=== PATIENT | male | born 1965 | race Caucasian/White ===

== ENCOUNTER 2018-07-23 11:33 | Outpatient (REF) | payer OTHER, SELFPAY ==
[2018-07-24 00:14] LABS: COMMENT (LAB VIEW ONLY) 7.78 mg/dL; Microalb ug/mg Crea 16.7 ug/mg Cr
== END 2018-07-23 11:53 ==
LOC: NCHCN 11:33
PROVIDERS: PCP Internal Medicine; Visit Provider Internal Medicine
DX: E11.9 Type 2 diabetes mellitus without complications (principal)
CPT/HCPCS: 82043; 82570

== ENCOUNTER 2019-01-15 09:06 | Outpatient (REF) | payer OTHER, SELFPAY ==
[2019-01-15 21:38] LABS: Anion Gap 8.8 mmol/L (3-11); BUN 19 mg/dL (7-18); CO2 28.2 mmol/L (21.0-32.0); Calcium 8.9 mg/dL (8.5-10.1); Chloride 103 mmol/L (98-107); Glucose 117 mg/dL (70-100); Potassium 4.3 mmol/L (3.5-5.1); Sodium 140 mmol/L (136-145)
[2019-01-15 22:10] LABS: Abs Immature Grans 0.01 k/cumm (0.0-0.09); Absolute Basophil Count 0.03 k/cumm (0.0-0.2); Absolute Eosinophil Count 0.14 k/cumm (0.0-0.7); Absolute Monocyte Count 0.39 k/cumm (0.11-0.7); Absolute Neutrophil Count 3.48 k/cumm (1.2-6.7); Basophils % 0.5; Eosinophils % 2.5; HCT 42.4 % (40.0-50.0); HGB 13.5 g/dL (13.5-17.5); Immature Grans % 0.2; Lymphocytes % 28.3; Mean Corp. HGB Concentration 31.8 g/dL (32.0-36.0); Mean Corpuscular Hemoglobin 28.5 pg (27.0-33.0); Mean Corpuscular Volume 89.6 fL (80-95); Mean Platelet Volume 10.5 fL (8.0-11.0); Monocytes % 6.9; Neutrophils % 61.6; Platelet Count 212 x1000/uL (130-400); RBC 4.73 m/cumm (4.50-6.00); RBC Distribution Width 13.9 % (11.8-14.1); White Blood Cell Count 5.65 k/cumm (4.4-10.8)
== END 2019-01-15 09:26 ==
LOC: NCHCN 09:06
PROVIDERS: PCP Internal Medicine; Visit Provider Family Medicine
DX: I25.10 Atherosclerotic heart disease of native coronary artery without angina pectoris (principal); E03.9 Hypothyroidism, unspecified
CPT/HCPCS: 80048; 84443; 85025

== ENCOUNTER 2019-06-17 17:39 | Outpatient (REF) | payer OTHER, SELFPAY ==
[2019-06-17 22:00] LABS: HCT 44.5 % (40.0-50.0); HGB 14.4 g/dL (13.5-17.5); Mean Corp. HGB Concentration 32.4 g/dL (32.0-36.0); Mean Corpuscular Hemoglobin 29.2 pg (27.0-33.0); Mean Corpuscular Volume 90.3 fL (80-95); Mean Platelet Volume 10.3 fL (8.0-11.0); Platelet Count 190 x1000/uL (130-400); RBC 4.93 m/cumm (4.50-6.00); White Blood Cell Count 7.17 k/cumm (4.4-10.8)
[2019-06-17 22:17] LABS: Anion Gap 8.9 mmol/L (3-11); BUN 34 mg/dL (7-18); CO2 28.1 mmol/L (21.0-32.0); CREATININE 0.89 mg/dL (0.70-1.30); Calcium 8.8 mg/dL (8.5-10.1); Chloride 104 mmol/L (98-107); Glucose 95 mg/dL (70-100); Magnesium 2.2 mg/dL (1.8-2.4); Potassium 3.9 mmol/L (3.5-5.1); Sodium 141 mmol/L (136-145); TSH 1.01 uIU/mL (0.36-3.74)
== END 2019-06-17 17:59 ==
LOC: NCHCN 17:39
PROVIDERS: PCP Internal Medicine; Visit Provider Family Medicine
DX: I49.3 Ventricular premature depolarization (principal); I25.10 Atherosclerotic heart disease of native coronary artery without angina pectoris; E11.9 Type 2 diabetes mellitus without complications
CPT/HCPCS: 80048; 85027; 83735; 84443

== ENCOUNTER 2019-11-06 15:29 | Outpatient (REF) | payer OTHER, SELFPAY ==
[2019-11-06 21:02] LABS: COMMENT (LAB VIEW ONLY) 53.81 mg/dL; Microalb ug/mg Crea 11.5 ug/mg Cr
== END 2019-11-06 15:49 ==
LOC: NCHCN 15:29
PROVIDERS: PCP Internal Medicine; Visit Provider Family Medicine
DX: Z00.00 Encounter for general adult medical examination without abnormal findings (principal); I25.10 Atherosclerotic heart disease of native coronary artery without angina pectoris; E03.9 Hypothyroidism, unspecified; I10 Essential (primary) hypertension; E11.9 Type 2 diabetes mellitus without complications
CPT/HCPCS: 82043; 82570

== ENCOUNTER 2019-11-18 22:50 | Outpatient (REF) | payer OTHER, SELFPAY ==
[2019-11-18 22:42] LABS: HCT 45.6 % (40.0-50.0); HGB 15.1 g/dL (13.5-17.5); Mean Corp. HGB Concentration 33.1 g/dL (32.0-36.0); Mean Corpuscular Hemoglobin 29.5 pg (27.0-33.0); Mean Corpuscular Volume 89.2 fL (80-95); Mean Platelet Volume 10.3 fL (8.0-11.0); Platelet Count 206 x1000/uL (130-400); RBC 5.11 m/cumm (4.50-6.00); RBC Distribution Width 12.7 % (11.8-14.1); White Blood Cell Count 6.65 k/cumm (4.4-10.8)
[2019-11-18 23:25] LABS: Anion Gap 7.6 mmol/L (3-11); BUN 13 mg/dL (7-18); CO2 31.4 mmol/L (21.0-32.0); CREATININE 0.83 mg/dL (0.70-1.30); Calcium 9.1 mg/dL (8.5-10.1); Chloride 104 mmol/L (98-107); Glucose 98 mg/dL (74-106); Magnesium 2.2 mg/dL (1.8-2.4); Potassium 4.1 mmol/L (3.5-5.1); Sodium 143 mmol/L (136-145); TSH 2.83 uIU/mL (0.36-3.74); Troponin I < 0.05 ng/Ml (<0.06); Vitamin B12 467 pg/mL (193-986)
[2019-11-19 05:26] LABS: Vitamin D 25 Total 28.6 ng/ml (30-100)
== END 2019-11-18 23:10 ==
LOC: NCHCN 22:50
PROVIDERS: PCP Internal Medicine; Visit Provider Family Medicine
DX: R07.9 Chest pain, unspecified (principal); M79.10 Myalgia, unspecified site
CPT/HCPCS: 80048; 82306; 85027; 82607; 83735; 84443; 84484

== ENCOUNTER 2019-11-26 14:01 | Outpatient (REF) | payer OTHER, SELFPAY ==
[2019-11-26 21:42] LABS: TSH 3.04 uIU/mL (0.36-3.74)
== END 2019-11-26 14:21 ==
LOC: NCHCN 14:01
PROVIDERS: PCP Internal Medicine; Visit Provider Family Medicine
DX: Z00.00 Encounter for general adult medical examination without abnormal findings (principal); I25.10 Atherosclerotic heart disease of native coronary artery without angina pectoris; E03.9 Hypothyroidism, unspecified; I10 Essential (primary) hypertension; E11.9 Type 2 diabetes mellitus without complications
CPT/HCPCS: 84443

== ENCOUNTER 2020-03-01 09:17 | Outpatient (REF) | payer OTHER, SELFPAY ==
[2020-03-01 20:45] LABS: Hemoglobin A1C 6.1 % (3.8-5.6)
[2020-03-01 20:57] LABS: ALT 51 U/L (16-63); AST 29 U/L (15-37); Albumin 4.1 g/dL (3.4-5.0); Alkaline Phosphatase 84 U/L (46-116); Anion Gap 9.8 mmol/L (3-11); BUN 13 mg/dL (7-18); Bilirubin, Total 0.5 mg/dL (0.2-1.0); CO2 26.2 mmol/L (21.0-32.0); CREATININE 0.94 mg/dL (0.70-1.30); Calcium 9.2 mg/dL (8.5-10.1); Chloride 105 mmol/L (98-107); Glucose 141 mg/dL (74-106); Potassium 4.3 mmol/L (3.5-5.1); Sodium 141 mmol/L (136-145); TSH 1.73 uIU/mL (0.36-3.74); Total Protein 6.8 g/dL (6.4-8.2)
[2020-03-01 21:11] LABS: Calculated LDL 60 mg/dL (<100); Cholesterol 128 mg/dL (<200); HDL Cholesterol 33 mg/dL (40-60); Triglyceride 177 mg/dL (<150)
[2020-03-03 14:03] LABS: PSA, Screening 0.8 ng/mL (0.0-3.5)
== END 2020-03-01 09:37 ==
LOC: NCHCN 09:17
PROVIDERS: PCP Family Medicine; Visit Provider Family Medicine
DX: Z00.00 Encounter for general adult medical examination without abnormal findings (principal); E03.9 Hypothyroidism, unspecified; I10 Essential (primary) hypertension; I25.10 Atherosclerotic heart disease of native coronary artery without angina pectoris; E11.9 Type 2 diabetes mellitus without complications; Z12.5 Encounter for screening for malignant neoplasm of prostate
CPT/HCPCS: 80053; 80061; 84153; 83036; 84443

== ENCOUNTER 2020-03-15 08:52 | Outpatient (REF) | payer OTHER, SELFPAY ==
[2020-03-15 22:22] LABS: Bilirubin Negative (Negative); Blood Negative (Negative); Clarity Clear (Clear); Glucose Negative (Negative); Ketones Negative (Negative); Leukocyte Esterase Negative (Negative); Nitrite Negative (Negative); Specific Gravity 1.025 (1.005-1.025); Urobilinogen 0.2 EU/dL (Up TO 0.2); pH 5.5 (5-8)
== END 2020-03-15 09:12 ==
LOC: NCHCN 08:52
PROVIDERS: PCP Family Medicine; Visit Provider Nurse Practitioner Family
DX: R30.0 Dysuria (principal)
CPT/HCPCS: 81003

== ENCOUNTER 2020-06-03 09:08 | Outpatient (REF) | payer OTHER, SELFPAY ==
[2020-06-03 21:10] LABS: Calculated LDL 64 mg/dL (<100); Cholesterol 133 mg/dL (<200); HDL Cholesterol 38 mg/dL (40-60); Triglyceride 155 mg/dL (<150)
[2020-06-03 21:24] LABS: Hemoglobin A1C 6.6 % (3.8-5.6)
== END 2020-06-03 09:28 ==
LOC: NCHCN 09:08
PROVIDERS: PCP Family Medicine; Visit Provider Family Medicine
DX: E11.9 Type 2 diabetes mellitus without complications (principal); I25.10 Atherosclerotic heart disease of native coronary artery without angina pectoris; E78.6 Lipoprotein deficiency; I49.3 Ventricular premature depolarization
CPT/HCPCS: 80061; 83036

== ENCOUNTER 2020-06-30 15:33 | Outpatient (REF) | payer OTHER, SELFPAY ==
[2020-07-04 18:06] LABS: SARS-CoV-2 RNA Undetected (Undetected); SARS-CoV-2 Specimen Source Nasopharynx
== END 2020-06-30 15:53 ==
LOC: NCHCN 15:33
PROVIDERS: PCP Family Medicine; Visit Provider Family Medicine
DX: Z11.59 Encounter for screening for other viral diseases (principal)
CPT/HCPCS: U0003

== ENCOUNTER 2020-12-01 20:55 | Outpatient (REF) | payer OTHER, SELFPAY ==
[2020-12-01 21:29] LABS: ALT 43 U/L (16-63); AST 22 U/L (15-37); Albumin 4.2 g/dL (3.4-5.0); Alkaline Phosphatase 72 U/L (46-116); Anion Gap 7.9 mmol/L (3-11); BUN 21 mg/dL (7-18); Bilirubin, Total 0.8 mg/dL (0.2-1.0); CO2 28.1 mmol/L (21.0-32.0); CREATININE 0.88 mg/dL (0.70-1.30); Calcium 8.9 mg/dL (8.5-10.1); Chloride 103 mmol/L (98-107); Glucose 88 mg/dL (74-106); Magnesium 2.2 mg/dL (1.8-2.4); Potassium 3.9 mmol/L (3.5-5.1); Sodium 139 mmol/L (136-145); TSH 2.25 uIU/mL (0.36-3.74); Total Protein 6.9 g/dL (6.4-8.2)
[2020-12-02 19:06] LABS: PSA, Screening 0.9 ng/mL (0.0-3.5)
== END 2020-12-01 21:15 ==
LOC: NCHCN 20:55
PROVIDERS: PCP Family Medicine; Visit Provider Family Medicine
DX: Z00.00 Encounter for general adult medical examination without abnormal findings (principal); E03.9 Hypothyroidism, unspecified; E55.9 Vitamin D deficiency, unspecified; I25.10 Atherosclerotic heart disease of native coronary artery without angina pectoris; Z12.5 Encounter for screening for malignant neoplasm of prostate
CPT/HCPCS: 80053; 82306; 84153; 83735; 84443

== ENCOUNTER 2020-12-15 20:49 | Outpatient (REF) | payer OTHER, SELFPAY ==
[2020-12-15 21:31] LABS: HCT 46.8 % (40.0-50.0); HGB 15.4 g/dL (13.5-17.5); MCH 29.2 pg (27.0-33.0); MCHC 32.9 % (32.0-36.0); MCV 88.8 fL (80-95); Platelet Count 202 10^3/uL (130-400); RBC 5.27 10^6/uL (4.36-5.78); RDW-SD 39.2 fL; WBC 6.93 10^3/uL (4.4-10.8)
[2020-12-15 21:33] LABS: C-Reactive Protein < 0.05 mg/dL (0.0-0.3)
[2020-12-16 09:06] LABS: ESR 10 mm/hr (<or=20)
== END 2020-12-15 20:50 | disposition home or self-care (01) ==
LOC: NCHCN 20:49
PROVIDERS: PCP Family Medicine; Visit Provider Family Medicine
DX: G44.52 New daily persistent headache (NDPH) (principal)
CPT/HCPCS: 85027; 85652; 86140

== ENCOUNTER 2021-05-10 08:26 | Outpatient (REF) | payer OTHER, SELFPAY ==
[2021-05-10 14:14] LABS: Hemoglobin A1C 6.5 % (<5.7)
[2021-05-10 14:30] LABS: AST 28 U/L (15-37); Albumin 3.8 g/dL (3.4-5.0); Anion Gap 9.2 mmol/L (3-11); BUN 12 mg/dL (7-18); Bilirubin, Total 0.6 mg/dL (0.2-1.0); CO2 26.8 mmol/L (21.0-32.0); CREATININE 0.9 mg/dL (0.70-1.30); Calcium 8.5 mg/dL (8.5-10.1); Calculated LDL 82 mg/dL (<100); Chloride 106 mmol/L (98-107); Cholesterol 145 mg/dL (<200); Glucose 133 mg/dL (74-106); HDL Cholesterol 47 mg/dL (40-60); Potassium 3.9 mmol/L (3.5-5.1); Sodium 142 mmol/L (136-145); Total Protein 6.2 g/dL (6.4-8.2); Triglyceride 80 mg/dL (<150)
[2021-05-10 14:50] LABS: ALT 63 U/L (16-63); Alkaline Phosphatase 74 U/L (46-116)
== END 2021-05-10 08:27 | disposition home or self-care (01) ==
LOC: NCHCN 08:26
PROVIDERS: PCP Family Medicine; Visit Provider Family Medicine
DX: Z00.00 Encounter for general adult medical examination without abnormal findings (principal); E78.5 Hyperlipidemia, unspecified; E11.9 Type 2 diabetes mellitus without complications; I10 Essential (primary) hypertension
CPT/HCPCS: 80053; 80061; 83036

== ENCOUNTER 2021-05-16 17:06 | Outpatient (REF) | payer OTHER, SELFPAY ==
[2021-05-16 20:56] LABS: TSH 3.18 uIU/mL (0.36-3.74)
== END 2021-05-16 17:07 | disposition home or self-care (01) ==
LOC: NCHCN 17:06
PROVIDERS: PCP Family Medicine; Visit Provider Family Medicine
DX: E03.9 Hypothyroidism, unspecified (principal)
CPT/HCPCS: 84443

== ENCOUNTER 2022-02-23 08:30 | Outpatient (REF) | payer OTHER, SELFPAY ==
[2022-02-23 22:12] LABS: Hemoglobin A1C 6.5 % (<5.7)
[2022-02-23 22:56] LABS: ALT 33 U/L (16-63); AST 17 U/L (15-37); Albumin 4.1 g/dL (3.4-5.0); Alkaline Phosphatase 78 U/L (46-116); Anion Gap 10.8 mmol/L (3-11); BUN 32 mg/dL (7-18); Bilirubin, Total 0.5 mg/dL (0.2-1.0); CO2 27.2 mmol/L (21.0-32.0); CREATININE 1.2 mg/dL (0.70-1.30); Calcium 8.5 mg/dL (8.5-10.1); Calculated LDL 78 mg/dL (<100); Chloride 105 mmol/L (98-107); Cholesterol 161 mg/dL (<200); Glucose 140 mg/dL (74-106); HDL Cholesterol 40 mg/dL (40-60); Sodium 143 mmol/L (136-145); TSH 4.35 uIU/mL (0.36-3.74); Total Protein 6.6 g/dL (6.4-8.2); Triglyceride 217 mg/dL (<150)
[2022-02-26 09:42] LABS: PSA, Screening 1.1 ng/mL (<=3.5)
== END 2022-02-23 08:31 | disposition home or self-care (01) ==
LOC: NCHCN 08:30
PROVIDERS: PCP Family Medicine; Visit Provider Family Medicine
DX: Z00.00 Encounter for general adult medical examination without abnormal findings (principal); E78.6 Lipoprotein deficiency; E11.9 Type 2 diabetes mellitus without complications; E03.9 Hypothyroidism, unspecified; I10 Essential (primary) hypertension; E66.9 Obesity, unspecified; Z12.5 Encounter for screening for malignant neoplasm of prostate
CPT/HCPCS: 80053; 80061; 84153; 83036; 84443

== ENCOUNTER 2022-05-10 16:13 | Outpatient (REF) | payer OTHER, SELFPAY ==
[2022-05-10 15:49] LABS: Calculated LDL 92 mg/dL (<100); Cholesterol 171 mg/dL (<200); HDL Cholesterol 46 mg/dL (40-60); TSH 3.39 uIU/mL (0.36-3.74); Triglyceride 168 mg/dL (<150)
== END 2022-05-10 16:14 | disposition home or self-care (01) ==
LOC: NCHCN 16:13
PROVIDERS: PCP Family Medicine; Visit Provider Family Medicine
DX: E11.9 Type 2 diabetes mellitus without complications (principal); I10 Essential (primary) hypertension; E78.6 Lipoprotein deficiency; E03.9 Hypothyroidism, unspecified; F43.23 Adjustment disorder with mixed anxiety and depressed mood; E66.9 Obesity, unspecified
CPT/HCPCS: 80061; 84443

== ENCOUNTER 2022-10-12 13:22 | Outpatient (REF) | payer OTHER, SELFPAY ==
[2022-10-12 16:05] LABS: COMMENT (LAB VIEW ONLY) 48.71 mg/dL; Microalb ug/mg Crea 4.3 ug/mg Cr
[2022-10-12 16:34] LABS: TSH 3.38 uIU/mL (0.36-3.74)
[2022-10-18 15:02] LABS: Testosterone, Free 8.84 ng/dL (3.87-14.7); Testosterone, Total 308 ng/dL (240-950)
== END 2022-10-12 13:23 | disposition home or self-care (01) ==
LOC: NCHCN 13:22
PROVIDERS: PCP Family Medicine; Visit Provider Family Medicine
DX: E11.9 Type 2 diabetes mellitus without complications (principal); E03.9 Hypothyroidism, unspecified; E66.9 Obesity, unspecified
CPT/HCPCS: 84402; 84403; 82043; 82570; 84443

== ENCOUNTER 2023-02-08 16:54 | Outpatient (REF) | payer BC, SELFPAY ==
[2023-02-08 21:59] LABS: ALT 33 U/L (16-63); AST 22 U/L (15-37); Albumin 4.5 g/dL (3.4-5.0); Alkaline Phosphatase 67 U/L (46-116); Anion Gap 11.5 mmol/L (3-11); BUN 19 mg/dL (7-18); Bilirubin, Total 0.6 mg/dL (0.2-1.0); CO2 25.5 mmol/L (21.0-32.0); CREATININE 0.7 mg/dL (0.70-1.30); Calcium 9.7 mg/dL (8.5-10.1); Calculated LDL 83 mg/dL (<100); Chloride 103 mmol/L (98-107); Cholesterol 158 mg/dL (<200); Estimated GFR 107.47 (mL/min/1.73m2); Glucose 117 mg/dL (74-106); HDL Cholesterol 51 mg/dL (40-60); Sodium 140 mmol/L (136-145); TSH 0.42 uIU/mL (0.36-3.74); Total Protein 7.7 g/dL (6.4-8.2); Triglyceride 121 mg/dL (<150)
[2023-02-11 09:34] LABS: PSA, Screening 1.5 ng/mL (<=3.5)
== END 2023-02-08 16:55 | disposition home or self-care (01) ==
LOC: NCHCN 16:54
PROVIDERS: PCP Family Medicine; Visit Provider Family Medicine
DX: Z00.00 Encounter for general adult medical examination without abnormal findings (principal); E11.9 Type 2 diabetes mellitus without complications; E03.9 Hypothyroidism, unspecified; Z12.5 Encounter for screening for malignant neoplasm of prostate
CPT/HCPCS: 80053; 80061; 84153; 84443

== ENCOUNTER 2023-05-29 09:36 | Outpatient (REF) | payer BC, SELFPAY ==
[2023-05-29 16:31] LABS: T4 9.7 ug/dL (4.7-13.3); TSH 1.34 uIU/mL (0.36-3.74)
[2023-05-29 22:16] LABS: T3, Total 115 ng/dL (97-169)
[2023-06-05 12:59] LABS: Testosterone, Free 7.22 ng/dL (3.87-14.7); Testosterone, Total 260 ng/dL (240-950)
== END 2023-05-29 09:37 | disposition home or self-care (01) ==
LOC: NCHCN 09:36
PROVIDERS: PCP Family Medicine; Visit Provider Family Medicine
DX: E03.9 Hypothyroidism, unspecified (principal); R63.5 Abnormal weight gain; Z00.00 Encounter for general adult medical examination without abnormal findings
CPT/HCPCS: 84402; 84403; 84436; 84443; 84480

== ENCOUNTER 2023-08-16 18:10 | Outpatient (REF) | payer BC, SELFPAY ==
[2023-08-16 16:22] LABS: ALT 42 U/L (16-63); AST 24 U/L (15-37); Albumin 4.1 g/dL (3.4-5.0); Alkaline Phosphatase 68 U/L (46-116); Anion Gap 8.1 mmol/L (3-11); BUN 23 mg/dL (7-18); Bilirubin, Total 0.5 mg/dL (0.2-1.0); CO2 25.9 mmol/L (21.0-32.0); CREATININE 0.7 mg/dL (0.70-1.30); Calcium 9.2 mg/dL (8.5-10.1); Calculated LDL 42 mg/dL (<100); Chloride 103 mmol/L (98-107); Cholesterol 103 mg/dL (<200); Estimated GFR 107.47 (mL/min/1.73m2); Glucose 172 mg/dL (74-106); HDL Cholesterol 46 mg/dL (40-60); Potassium 4.1 mmol/L (3.5-5.1); Sodium 137 mmol/L (136-145); TSH (W/Ref FT4) 1.32 uIU/mL (0.36-3.74); Total Protein 7.2 g/dL (6.4-8.2); Triglyceride 77 mg/dL (<150)
[2023-08-16 22:45] LABS: T3, Total 127 ng/dL (97-169)
== END 2023-08-16 18:11 | disposition home or self-care (01) ==
LOC: NCHCN 18:10
PROVIDERS: PCP Family Medicine; Visit Provider Family Medicine
DX: E03.9 Hypothyroidism, unspecified (principal); E11.9 Type 2 diabetes mellitus without complications; E78.00 Pure hypercholesterolemia, unspecified
CPT/HCPCS: 80053; 80061; 84443; 84480

== ENCOUNTER 2023-11-14 16:19 | Outpatient (REF) | payer BC, SELFPAY ==
[2023-11-14 20:39] LABS: TSH (W/Ref FT4) 2.88 uIU/mL (0.36-3.74)
[2023-11-15 19:10] LABS: PSA, Screening 1.6 ng/mL (<=3.5)
== END 2023-11-14 16:20 | disposition home or self-care (01) ==
LOC: NCHCN 16:19
PROVIDERS: PCP Family Medicine; Visit Provider Family Medicine
DX: E03.9 Hypothyroidism, unspecified (principal); R73.09 Other abnormal glucose; Z12.5 Encounter for screening for malignant neoplasm of prostate
CPT/HCPCS: 84153; 83036; 84443

== ENCOUNTER 2024-03-25 10:19 | Outpatient (REF) | payer BC, SELFPAY ==
[2024-03-25 15:06] LABS: Anion Gap 12.5 mmol/L (3-11); BUN 26 mg/dL (7-18); CO2 24.5 mmol/L (21.0-32.0); CREATININE 0.8 mg/dL (0.70-1.30); Calcium 9.3 mg/dL (8.5-10.1); Chloride 105 mmol/L (98-107); Estimated GFR 102.58 (mL/min/1.73m2); Glucose 138 mg/dL (74-106); Magnesium 2.2 mg/dL (1.8-2.4); Potassium 4.3 mmol/L (3.5-5.1); Sodium 142 mmol/L (136-145)
[2024-03-25 16:10] LABS: Vitamin D 25 Total 74.7 ng/mL (30-100)
== END 2024-03-25 10:20 | disposition home or self-care (01) ==
LOC: NCHCN 10:19
PROVIDERS: PCP Family Medicine; Visit Provider Family Medicine
DX: E55.9 Vitamin D deficiency, unspecified (principal); I10 Essential (primary) hypertension
CPT/HCPCS: 80048; 82306; 83735

== ENCOUNTER 2024-12-25 09:57 | Outpatient (REF) | payer OTHER, SELFPAY ==
[2024-12-25 15:04] LABS: FREE T4 1.26 ng/dL (0.76-1.46); TSH 0.08 uIU/mL (0.36-3.74)
== END 2024-12-25 09:58 | disposition home or self-care (01) ==
LOC: NCHCN 09:57
PROVIDERS: PCP Family Medicine; Visit Provider Family Medicine
DX: E03.9 Hypothyroidism, unspecified (principal)
CPT/HCPCS: 84439; 84443